=== PATIENT | female | born 1995 | race African-American/Black ===

== ENCOUNTER 2018-01-17 16:14 | Emergency (ER) | payer SELFPAY ==
[~2018-01-17] VITALS: Ht 165.1 cm; Wt 88.9 kg
[2018-01-17 16:22] VITALS: Ht 165.1 cm; Wt 88.9 kg
[2018-01-17 19:40] VITALS: BP 135/87
== END 2018-01-17 19:40 | disposition home or self-care (01) ==
LOC: ED 16:14
DX: H53.9 Unspecified visual disturbance (principal)